=== PATIENT | male | born 1960 | race Two or more races ===

== ENCOUNTER 2020-02-09 14:27 | Outpatient (RCR) | payer SELFPAY | END 2020-02-16 | disposition home or self-care (01) | LOC: WCC 14:27 | DX: E11.621 Type 2 diabetes mellitus with foot ulcer (principal); L97.515 Non-pressure chronic ulcer of other part of right foot with muscle involvement without evidence of necrosis; M20.41 Other hammer toe(s) (acquired), right foot | CPT/HCPCS: 82962 ==

== ENCOUNTER 2020-02-17 14:13 | Outpatient (RCR) | payer OTHER | END 2020-03-17 | disposition still patient (30) | LOC: WCC 14:13 | DX: E11.621 Type 2 diabetes mellitus with foot ulcer (principal); L97.515 Non-pressure chronic ulcer of other part of right foot with muscle involvement without evidence of necrosis; E11.42 Type 2 diabetes mellitus with diabetic polyneuropathy; Z89.421 Acquired absence of other right toe(s) ==